=== PATIENT | female | born 1985 | race Caucasian/White ===

== ENCOUNTER 2017-10-28 05:55 | Inpatient (IN) | payer MEDICAID ==
[2017-10-28] MEDS ORDERED: CARBOPROST 250 MCG INJ IM ×2 (06:30→10:00)
[2017-10-28] MEDS ORDERED: MISOPROSTOL 200 MCG TAB PR ×2 (06:30→10:00)
[2017-10-28] MEDS ORDERED: METHYLERGONOVINE 0.2 MG INJ IM ×2 (06:30→10:00)
[2017-10-28] MEDS ORDERED: OXYTOCIN 30 UNITS/LR 500 ML IV ×3 (06:30→10:00)
[2017-10-28 06:57] LABS: ADD MAN DIFF? NO
[2017-10-28 06:59] LABS: WHITE BLOOD COUNT 6.2 10^3/ul (4.8-10.8)
[2017-10-28 06:59] LABS: BASOPHILS % 0.3 % (0.0-2.0); EOSINOPHILS # 0.1 10^3/ul (0.0-0.5); EOSINOPHILS % 0.8 % (0.0-7.0); HEMATOCRIT 34.2 % (37.0-47.0); LYMPHOCYTES # 1.6 10^3/ul (0.8-2.9); LYMPHOCYTES % 24.9 % (15.0-51.0); MEAN CORPUSCULAR HEMOGLOBIN 32.7 pg (29.0-33.0); MEAN CORPUSCULAR HGB CONC 35.1 g/dl (32.0-37.0); MEAN CORPUSCULAR VOLUME 93.2 fl (82.0-101.0); MEAN PLATELET VOLUME 10.9 fl (7.4-10.4); MONOCYTE # 0.3 10^3/ul (0.3-0.9); MONOCYTES % 5.5 % (0.0-11.0); NEUTROPHIL # 4.2 10^3/ul (1.6-7.5); NEUTROPHILS % 67.5 % (39.0-77.0); PLATELET COUNT 163 10^3/UL (140-415); RED BLOOD COUNT 3.67 10^6/ul (4.20-5.40)
[2017-10-28] MEDS ORDERED: OXYTOCIN 30 UNITS/LR 500 ML BAG IV (07:00)
[2017-10-28] MEDS: LACTATED RINGER'S 1,000 ML IV ×3 (07:06→22:12)
[2017-10-28] MEDS ORDERED: PHENYLephrine (100 MCG/ML) 5ML SYG ×2 (07:42→08:49)
[2017-10-28] MEDS ORDERED: BUPIVACAINE 0.75%/DEXT (SPINAL) 2 ML INJ (07:42)
[2017-10-28] MEDS ORDERED: OXYTOCIN 10 UNIT INJ (07:42)
[2017-10-28] MEDS ORDERED: ONDANSETRON 4 MG INJ (07:42)
[2017-10-28] MEDS ORDERED: morphine SULFATE/PF (10 MG/10 ML) INJ (07:42)
[2017-10-28 07:48] LABS: INR 0.99; PROTIME 13.2 Sec (11.9-14.9)
[2017-10-28] MEDS ORDERED: NALOXONE (0.4 MG/ML) INJ IV ×2 (09:30→14:00)
[2017-10-28] MEDS ORDERED: ONDANSETRON 4 MG INJ IV ×2 (09:30→14:00)
[2017-10-28] MEDS ORDERED: morphine 2 MG INJ IV (09:30)
[2017-10-28] MEDS ORDERED: DIPHENHYDRAMINE 50 MG INJ IV (09:30)
[2017-10-28] MEDS: CEFAZOLIN 2 GM/50 ML (PMX) 50 ML IVPB (09:46)
[2017-10-28] MEDS: OXYTOCIN 30 UNITS/LR 500 ML IV ×2 (09:47→13:55)
[2017-10-28] MEDS ORDERED: METHYLERGONOVINE 0.2 MG TAB PO (10:00)
[2017-10-28] MEDS ORDERED: DEXTROSE 5%-LR 1,000 ML IV (10:00)
[2017-10-28] MEDS ORDERED: LANOLIN 7 GM TUBE TOP (10:00)
[2017-10-28] MEDS: IBUPROFEN 800 MG TAB PO ×2 (13:49→21:08)
[2017-10-28] MEDS: SENNA/DOCUSATE NA (8.6MG/50MG) TAB PO (21:00)
[2017-10-28 21:47] LABS: RAPID PLASMA REAGIN NONREACTIVE (NR)
[2017-10-29] MEDS: KETOROLAC 30 MG INJ IV ×2 (00:07→07:51)
[2017-10-29] MEDS: LACTATED RINGER'S 1,000 ML IV ×3 (02:12→22:12)
[2017-10-29] MEDS: IBUPROFEN 800 MG TAB PO ×3 (06:00→22:09)
[2017-10-29] MEDS ORDERED: HYDROCODONE/APAP (5/325) TAB GTB (08:00)
[2017-10-29 09:21] LABS: ADD MAN DIFF? NO
[2017-10-29 09:28] LABS: BASOPHILS % 0.2 % (0.0-2.0); EOSINOPHILS % 0.3 % (0.0-7.0); HEMATOCRIT 30.8 % (37.0-47.0); HEMOGLOBIN 10.6 g/dl (12.0-16.0); LYMPHOCYTES # 1.3 10^3/ul (0.8-2.9); LYMPHOCYTES % 14.4 % (15.0-51.0); MEAN CORPUSCULAR HEMOGLOBIN 32.3 pg (29.0-33.0); MEAN CORPUSCULAR HGB CONC 34.4 g/dl (32.0-37.0); MEAN CORPUSCULAR VOLUME 93.9 fl (82.0-101.0); MEAN PLATELET VOLUME 11.1 fl (7.4-10.4); MONOCYTE # 0.3 10^3/ul (0.3-0.9); MONOCYTES % 3.5 % (0.0-11.0); NEUTROPHIL # 7.3 10^3/ul (1.6-7.5); PLATELET COUNT 134 10^3/UL (140-415); RED BLOOD COUNT 3.28 10^6/ul (4.20-5.40); RED CELL DISTRIBUTION WIDTH 13.1 % (11.5-14.5)
[2017-10-29] MEDS: SENNA/DOCUSATE NA (8.6MG/50MG) TAB PO ×2 (11:53→21:08)
[2017-10-29] MEDS: HYDROCODONE/APAP (5/325) TAB GTB (21:08)
[2017-10-30] MEDS: IBUPROFEN 800 MG TAB PO ×3 (05:43→21:47)
[2017-10-30] MEDS: LACTATED RINGER'S 1,000 ML IV (06:12)
[2017-10-30] MEDS: SENNA/DOCUSATE NA (8.6MG/50MG) TAB PO ×2 (08:36→21:46)
[2017-10-31] MEDS: IBUPROFEN 800 MG TAB PO (05:18)
[2017-10-31] MEDS ORDERED: MEASLES,MUMPS,RUBELLA VACCINE INJ SC* (09:00)
[2017-10-31] MEDS: SENNA/DOCUSATE NA (8.6MG/50MG) TAB PO (09:11)
[2017-10-31] MEDS: DIPHTH/TET/ACEL PERTUSS (ADULT) 0.5 ML VIAL IM* (09:54)
== END 2017-10-31 12:15 | disposition home or self-care (01) | DRG 766 ==
LOC: L-D 05:55 → PP1 11:51
PROVIDERS: Obstetrics & Gynecology
PROC: 10D00Z1 Extraction of Products of Conception, Low, Open Approach (ICD-10-PCS; principal; 2017-10-28 07:30)
PROC: 0DNW0ZZ Release Peritoneum, Open Approach (ICD-10-PCS; 2017-10-28 07:30)
DX: O34.211 Maternal care for low transverse scar from previous cesarean delivery (principal); O99.62 Diseases of the digestive system complicating childbirth; K66.0 Peritoneal adhesions (postprocedural) (postinfection); O99.214 Obesity complicating childbirth; E66.9 Obesity, unspecified; Z68.31 Body mass index [BMI] 31.0-31.9, adult; Z3A.39 39 weeks gestation of pregnancy; Z37.0 Single live birth
CPT/HCPCS: 85025; 85610; 85730; 86592; 86850; 86900; 86901; 90715; 99464